=== PATIENT | female | born 1960 | race Caucasian/White ===

== ENCOUNTER → 2016-12-03 | Outpatient (REF) | LOC: ZLAB.WCH 15:38 | DX: Z01.89 Encounter for other specified special examinations (principal) ==

== ENCOUNTER → 2017-02-03 | Outpatient (REF) ==
[2017-02-03 15:54] LABS: THYROID STIMULATING HORMONE 0.721 uIU/mL (0.465-4.680)
== END ==
LOC: ZLAB.WCH 14:45
PROVIDERS: Internal Medicine
DX: Z01.89 Encounter for other specified special examinations (principal)

== ENCOUNTER → 2018-12-25 | Outpatient (REF) ==
[2018-12-25 17:14] LABS: THYROID STIMULATING HORMONE 0.075 uIU/mL (0.465-4.680)
== END ==
LOC: ZLAB.WCH 16:15
PROVIDERS: Internal Medicine
DX: Z01.89 Encounter for other specified special examinations (principal)